=== PATIENT | female | born 1960 | race Caucasian/White ===

== ENCOUNTER 2025-02-07 19:01 | Emergency (ER) | payer OTHER, SELFPAY ==
[2025-02-07 19:11] VITALS: BP 172/82
--- NOTE | 2025-02-07 20:07 | ED.MUSCINJ ---
HPI-Injury
General
Chief Complaint: Musculo-Skeletal Complaint
Source: patient
Exam Limitations: none
Time Seen by Provider: 02/07/25 19:57
History of Present Illness-Injury
Initial Injury comments:
64-year-old female presents complaining of right foot pain and swelling starting today. She missed a step and twisted her foot and felt a pop. She is healthy otherwise. No other complaints
Phy Exam
Physical Exam
Physical Exam:
General well-appearing female no acute distress
Musculoskeletal right foot swollen and ecchymotic and tender mainly over the fifth metatarsal the medial and lateral malleoli are nontender. She is able to dorsiflex and plantarflex. She does have the ability to resist eversion and inversion.
Foot has a 2+ DP pulse with good sensation
Injury Course
Orders/Labs/Results
Orders:
Orders
02/07/25 19:14
CR Foot - Right Min 3 Views Urgent
Comment:
Reason For Exam: injury
02/07/25 20:06
Crutches-Treatment ONCE
Ortho Boot Right- Treatment ONCE
Short or tall?: Short
MDM/Problems Addressed
Differential Diagnosis Includes:
Right foot pain. Consider sprain versus fracture versus dislocation.
X-rays demonstrate fracture of the base of the fifth metatarsal is intra-articular in nature. Patiently placed in a walking boot and given crutches and advised strict nonweightbearing until seen by orthopedics
*Pulse Oximetry
SaO2: 99
Oxygen Mode of Delivery: Room air
Patient hypoxic: no
*Critical Care Note
Total Time (30-74mins, 75-104mins- exclusive of procedures): Not Applicable
ED Attending Note
-
Portions of this chart may have been created with voice recognition software.� Occasional wrong word or��sound alike� substitutions may have occurred due to the inherent limitations of voice recognition software.
Discharge Plan
Departure
Patient Disposition: Home (Routine Discharge)
Date of Disposition: 02/07/25
Time of Disposition: 20:08
Patient with high blood pressure during this ER visit?: No
Discharge Problem:
Foot fracture, right
Instructions: Muscle and Bone Pain (DC)
Referrals:
Westley Koroma MD [Active, Orthopedics]
Activity Restrictions/Additional Instructions:
Do not bear weight on your right foot use the boot at all times. Elevate for swelling. Follow-up with orthopedics
Interventions
Interventions:
*Risk Screen - Suicide Last Done: 02/07/25 19:11
*General Assessment Last Done: 02/07/25 19:11
*Neglect/Abuse Screening Last Done: 02/07/25 19:11
Discharge Date and Time
Print Language: BRAZILIAN
== END 2025-02-07 20:46 | disposition home or self-care (01) ==
LOC: EMR 19:01
PROVIDERS: EMERGENCY PHYSICIAN Emergency Medicine; FAMILY PHYSICIAN Internal Medicine
DX: S92.351A Displaced fracture of fifth metatarsal bone, right foot, initial encounter for closed fracture (principal); X50.1XXA Overexertion from prolonged static or awkward postures, initial encounter
CPT/HCPCS: 99283; 73630